=== PATIENT | female | born 1955 | race Caucasian/White ===

== ENCOUNTER 2020-12-08 16:24 | Observation (INO) ==
[2020-12-08] MEDS ORDERED: LORazepam 1 MG/2 ML VIAL IV STA (16:40)
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
[2020-12-08 17:04] LABS: Basophils # (auto) 0.01 K/uL (0-0.2); Basophils % (auto) 0.1 %; Eosinophils # (auto) 0.13 K/uL (0-0.5); Eosinophils % (auto) 1.3 %; Hematocrit (blood only) 38.2 % (37-47); Hemoglobin 13.4 g/dL (12.0-16.0); Immature Granulocytes # (auto) 0.02 K/uL (0.00-0.02); Immature Granulocytes % (auto) 0.2 %; Lymphocytes # (auto) 3.72 K/uL (1.2-3.4); Lymphocytes % (auto) 36.4 %; Mean Corpuscular Hemoglobin 33.6 pg (25-34); Mean Corpuscular Hgb Conc 35.1 g/dL (32-36); Mean Corpuscular Volume 95.7 fL (80-100); Mean Platelet Volume 8.7 fL (7.4-10.4); Monocytes # (auto) 0.63 K/uL (0.11-0.59); Monocytes % (auto) 6.2 %; Neutrophils # (auto) 5.71 K/uL (1.4-6.5); Neutrophils % (auto) 55.8 %; Platelet Count 346 K/uL (130-400); RDW Coefficient of Variation 12.5 % (11.5-14.5); RDW Standard Deviation 43.4 fL (36.4-46.3); Red Blood Count 3.99 M/uL (4.2-5.4); White Blood Count 10.22 K/uL (4.8-10.8)
[2020-12-08 17:15] LABS: Partial Thromboplastin Time 29.2 Seconds (21.0-31.0); Prothrombin Time 10.2 Seconds (9.0-12.0)
--- NOTE | 2020-12-08 17:18 | XRay Report ---
XR chest 2V PA/lateral CLINICAL HISTORY: Atypical chest pain COMPARISON STUDY: No previous studies for comparison. FINDINGS: The heart is the upper limits of normal in size. There is no failure. There is no lobar con solidation. There is a linear opacity within the left mid to lower lung zone, likely representing sub segmental atelectasis.[There is slight basilar interstitial thickening. IMPRESSION: 1. Minor basilar interstitial thickening and subsegmental atelectatic changes the left lung base. No evidence of failure. No evidence of lobar consolidation ACT 112: Negative or not required by law. Electronically signed by: Hima Samuel M.D. 12/08/2020 5:17 PM
[2020-12-08 17:21] LABS: BUN Creatinine Ratio 18.8 (10-20); Calcium 8.8 mg/dl (8.5-10.1); Creatinine Clr Calc Pharmacy 92.9 ml/min; Est GFR (African American) 110.3; Est GFR (Non-African American) 95.1; Potassium 3.5 mmol/L (3.5-5.1)
[2020-12-08 17:27] LABS: Troponin I 0.114 ng/ml (0-0.045)
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
[2020-12-08] MEDS ORDERED: ONDANSETRON INJ 2 MG/ML 2 ML VIAL IV PRN (20:44)
[2020-12-08] MEDS ORDERED: NITROGLYCERIN SL 0.4 MG/TAB TAB SL PRN (20:44)
[2020-12-08] MEDS ORDERED: POLYETHYLENE (MIRALAX) 17 GM PACK PO PRN (20:44)
[2020-12-08] MEDS ORDERED: ACETAMINOPHEN 325 MG TAB PO PRN (20:44)
[2020-12-08] MEDS ORDERED: ZALEPLON 5 MG CAPSULE PO SCH (21:00)
[2020-12-09] MEDS ORDERED: hydrOXYzine HCl 10 MG TAB PO PRN (01:38)
[2020-12-09] MEDS ORDERED: ASPIRIN 81 MG ECTAB PO SCH (09:00)
[2020-12-09] MEDS ORDERED: MAGNESIUM OXIDE 400 MG TAB PO SCH (09:00)
[2020-12-09 09:41] LABS: Basophils # (auto) 0.02 K/uL (0-0.2); Basophils % (auto) 0.3 %; Eosinophils # (auto) 0.16 K/uL (0-0.5); Eosinophils % (auto) 2.1 %; Hemoglobin 12.4 g/dL (12.0-16.0); Immature Granulocytes # (auto) 0.01 K/uL (0.00-0.02); Immature Granulocytes % (auto) 0.1 %; Lymphocytes # (auto) 2.59 K/uL (1.2-3.4); Lymphocytes % (auto) 33.2 %; Mean Corpuscular Hemoglobin 32.5 pg (25-34); Mean Corpuscular Hgb Conc 33.5 g/dL (32-36); Mean Corpuscular Volume 97.1 fL (80-100); Mean Platelet Volume 8.8 fL (7.4-10.4); Monocytes # (auto) 0.49 K/uL (0.11-0.59); Monocytes % (auto) 6.3 %; Neutrophils # (auto) 4.53 K/uL (1.4-6.5); Platelet Count 352 K/uL (130-400); RDW Coefficient of Variation 12.8 % (11.5-14.5); RDW Standard Deviation 45.2 fL (36.4-46.3); Red Blood Count 3.81 M/uL (4.2-5.4)
[2020-12-09 10:04] LABS: Creatinine Clr Calc Pharmacy 108.7 ml/min; Est GFR (African American) 116.2; Est GFR (Non-African American) 100.3; Magnesium 1.9 mg/dl (1.8-2.4)
--- NOTE | 2020-12-09 10:12 | XCELERA ---
[id number]
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
--- NOTE | 2020-12-09 12:30 | Electrocardiogram Report ---
Test Reason : Blood Pressure : / mmHG Vent. Rate : 071 BPM Atrial Rate : 071 BPM P-R Int : 168 ms QRS Dur : 078 ms QT Int : 448 ms P-R-T Axes : 071 032 086 degrees QTc Int : 486 ms Poor data quality, interpretation may be adversely affected Normal sinus rhythm Normal ECG No previous ECGs available Confirmed by Moise Bermudez ([id number]) on 12/09/2020 12:29:48 PM Referred By: REFERRED SELF Confirmed By:Moise Bermudez
--- NOTE | 2020-12-09 12:38 | Electrocardiogram Report ---
Test Reason : Blood Pressure : / mmHG Vent. Rate : 058 BPM Atrial Rate : 058 BPM P-R Int : 180 ms QRS Dur : 084 ms QT Int : 496 ms P-R-T Axes : 071 063 099 degrees QTc Int : 486 ms Sinus bradycardia Poor R wave progression, consider anterior CT vs. lead placement vs. LVH Abnormal ECG When compared with ECG of 08-DEC-2020 16:36, (unconfirmed) No significant change was found Confirmed by Moise Bermudez ([id number]) on 12/09/2020 12:37:59 PM Referred By: REFERRED SELF Confirmed By:Moise Bermudez
--- NOTE | 2020-12-09 21:28 | Billing Data ---
Date of Service December 09, 2020 Coding Level of Care Code 88431 OBS Care - Level 3
[2020-12-10 06:39] LABS: Estimated Average Glucose 117 mg/dl; Hemoglobin A1C 5.7 % (4.5-5.6)
== END 2020-12-09 09:35 | disposition left against medical advice (07) ==
LOC: 2W 16:24 → ED 16:24 → SUATTDRO 19:42 → 2W 20:17

== ENCOUNTER 2020-12-10 00:50 | Observation (INO) ==
--- NOTE | 2020-12-10 01:48 | Emergency Department Note ---
Impression & Plan Acute pain of right shoulder, Blood alcohol, elevated ED Provider Note NAME: CARMENZA LOAIZA AGE: 65 SEX: F ARRIVES VIA: Ambulance INFORMANT: Patient ED PROVIDER(S): Angelica Lynch DO CHIEF COMPLAINT: Right shoulder pain and neck pain PLAN: Disposition: Evaluated by the [facility] service Condition: Good MEDICAL DECISION MAKING: This is a 65-year-old female patient who presents to the emergency department complaining of bilateral arm pain, neck pain and back pain. The patient's symptoms started after having a stressful conversation on the phone with her daughter. The patient was seen here 2 days ago with substernal chest pain and admitted to the hospital with an elevated troponin. Unfortunately, at that time, the patient signed herself out AMA before all of the cardiology evaluation could be completed. The patient states that she was feeling okay when she left the hospital but much of her symptoms came back tonight after this phone call but most specifically a throbbing pain in her neck and right shoulder. EKG is unremarkable and troponin is negative today. I reviewed the records from her admission 2 days ago and discussed the case with the [facility] ospitalist. They will evaluate the patient to bring her back into the hospital to complete the rest of her work-up. The concern is that her shoulder discomfort and neck pain may be an anginal equivalent. Triage Nursing notes reviewed and agree them. Prior medical records reviewed Vital Signs: reviewed and unremarkable Differential diagnosis: Unstable angina, STEMI, pancreatitis, aortic dissection, anxiety, GERD Diagnostics interpreted by me: ECG: Normal sinus rhythm at a rate of [address] segment elevation or signs of ischemia. There is no ectopy. This is unchanged from an EKG from just 2 days ago. Cardiac Monitoring: Normal sinus rhythm at a rate of 73. Laboratory studies: See below HPI: 65/F arrives for evaluation of right shoulder pain and neck pain. Patient presents to the emergency department with upper back pain, neck pain and right shoulder pain. She describes these symptoms as throbbing. She states that her symptoms are exactly the same as what brought her to the emergency department 2 nights ago when she was admitted with elevated troponins. Patient admits that she had an argument on the phone with her daughter who is currently in [facility] and this was probably the triggering event. Patient states that she is still having some mild posterior neck pain and right shoulder pain. The patient was at a restaurant tonight where she had 2 glasses of wine and some whiskey. ROS: See above HPI for pertinent positives & negatives. A total of 10 systems reviewed and were otherwise negative. PAST MEDICAL HISTORY:Bipolar disorder; alcohol use; pancreatitis; cardiac cath 2 years ago which was negative according to the patient PAST SURGICAL HISTORY:See Below FAMILY HISTORY:See Below SOCIAL HISTORY:Patient lives with her in [place], [place]; she does smoke; she does drink alcohol HOME MEDICATIONS:See list ALLERGIES:Prednisone VITALS:See Below PHYSICAL EXAMINATION: General: The patient is slurring her words and smells of alcohol. HEENT: Head - normocephalic and atraumatic Pupils are equal, round, and reactive to light. Extraocular eye muscles are intact, and sclera are anicteric. Nose - moist nasal mucosa without discharge. Mouth - moist buccal mucosa. Oropharynx is nonerythematous and there is no tonsillar exudate or edema noted. Neck: Supple; no JVD or thyromegaly Heart: Regular rate and rhythm. There is a normal S1 and S2 with no murmurs, clicks, or gallops appreciated. Lungs: Clear to auscultation bilaterally with no wheezes, rales, or rhonchi. Abdomen: Soft, completely nontender, nondistended, with good bowel sounds. There are no palpable pulsatile masses or hepatosplenomegaly. There is no guarding, rigidity, or rebound noted. Extremities: No evidence of cyanosis, clubbing, or edema. There are easily palpable peripheral pulses. Skin: warm and dry with good turgor and no rashes. ED COURSE:0105: Patient was evaluated in room A2. A complete history and physical was performed. Electronic medical records from 2 days ago were reviewed including the inpatient records. The patient did sign out AMA at that time. An order was placed for continuous cardiac monitoring. The patient is in a normal sinus rhythm at a rate of 73. Laboratory studies were drawn as above. A twelve-lead EKG was obtained. Upon initial questioning, the patient denied that she ever had a cardiac cath but did state that she underwent cardiac stress testing sometime ago at [facility]. After further questioning, the patient does believe that she had a cardiac cath which was -2 garcia ago. The patient was admitted to [facility] last summer for pancreatitis. She states that she had some sort of cardiac work-up at that time which was negative. The patient is visiting the area from the [place] area. She does have a elderly sitter back in the [place] area but would prefer to have any further cardiac work-up done at this time here. [facility] her 2 days ago during her first visit. They will evaluate her for further care. Angelica Lynch DO Past Med/Surg History Medical History Bipolar 1 disorder No pertinent family history Surgical History No pertinent past surgical history Family History Mother Heart disease, Onset Age: 60 Father Heart disease, Onset Age: 70 Social History Smoking Status: Current every day smoker Tobacco Type: Cigarettes Cigarettes Per Day: 6; Hx Alcohol Use: Yes Alcohol type: beer, wine and hard liquor Hx Substance Use: No Preferred Language: Iranian Communication Ability: Effective Accountant Certified Public Required: No Beliefs That Will Affect Care: None Current Living Situation: Spouse Feels Safe at Home: Yes Assistive Devices: None Allergies Allergies Allergy/AdvReac Type Severity Reaction Status Date / Time prednisone AdvReac Severe Triggers Unverified 12/10/20 01:43 Marva Home Meds Home Medications Medication Instructions Recorded Confirmed zaleplon 10 mg PO HS PRN 12/08/20 12/10/20 buspirone 15 mg PO BID 12/10/20 12/10/20 cariprazine [Vraylar] 3 mg PO DAILY 12/10/20 12/10/20 lamotrigine 300 mg PO DAILY 12/10/20 12/10/20 Results & Data (ED) Vital Signs Vital Signs - 24 hr 12/10/20 01:00 12/10/20 01:30 12/10/20 02:00 Temperature 36.5 C Temperature Source Oral Pulse Rate 68 70 67 Pulse Rate from SpO2 Sensor 69 70 66 Pulse Rhythm Regular Pulse Strength Normal Respiratory Rate 17 24 18 Respiratory Effort / Characteristics Non-Labored Respiratory Depth Normal Respiratory Pattern Regular Blood Pressure 118/56 L 125/62 125/59 L Blood Pressure Mean 76 83 81 Blood Pressure Position Lying Pulse Oximetry 95 94 98 Oxygen Delivery Method Room Air Room Air Sepsis Recent Fever Within 48 Hours No Sepsis New/Unexplained Change in Mental Status N/A Sepsis Action Taken by Nursing No Action Required 12/10/20 02:30 12/10/20 03:00 12/10/20 03:30 Temperature Temperature Source Pulse Rate 75 71 69 Pulse Rate from SpO2 Sensor 75 71 69 Pulse Rhythm Pulse Strength Respiratory Rate 13 16 17 Respiratory Effort / Characteristics Respiratory Depth Respiratory Pattern Blood Pressure 137/61 116/58 L 145/57 H Blood Pressure Mean 86 77 86 Blood Pressure Position Pulse Oximetry 94 94 94 Oxygen Delivery Method Room Air Sepsis Recent Fever Within 48 Hours Sepsis New/Unexplained Change in Mental Status Sepsis Action Taken by Nursing 12/10/20 04:01 Temperature Temperature Source Pulse Rate 73 Pulse Rate from SpO2 Sensor 71 Pulse Rhythm Pulse Strength Respiratory Rate 17 Respiratory Effort / Characteristics Respiratory Depth Respiratory Pattern Blood Pressure 144/47 H Blood Pressure Mean 79 Blood Pressure Position Pulse Oximetry 97 Oxygen Delivery Method Sepsis Recent Fever Within 48 Hours Sepsis New/Unexplained Change in Mental Status Sepsis Action Taken by Nursing Laboratory Data Result diagrams: 12/10/20 01:50 12/10/20 01:50 Lab Results 12/10/20 12/10/20 12/10/20 Range/Units 01:50 01:50 01:50 WBC 8.29 (4.8-10.8) K/uL RBC 4.19 L (4.2-5.4) M/uL Hgb 13.8 (12.0-16.0) g/dL Hct 41.1 (37-47) % MCV 98.1 (80-100) fL MCH 32.9 (25-34) pg MCHC 33.6 (32-36) g/dL RDW Std Deviation 45.2 (36.4-46.3) fL RDW Coeff of Trav 12.7 (11.5-14.5) % Plt Count 304 (130-400) K/uL MPV 8.4 (7.4-10.4) fL Immature Gran % (Auto) 0.1 % Neut % (Auto) 44.0 % Lymph % (Auto) 47.6 % Jefferson % (Auto) 5.5 % Eos % (Auto) 2.7 % Baso % (Auto) 0.1 % Neut # (Auto) 3.64 (1.4-6.5) K/uL Lymph # (Auto) 3.95 H (1.2-3.4) K/uL Jefferson # (Auto) 0.46 (0.11-0.59) K/uL Eos # (Auto) 0.22 (0-0.5) K/uL Baso # (Auto) 0.01 (0-0.2) K/uL Immature Gran # (Auto) 0.01 (0.00-0.02) K/uL PT 9.9 (9.0-12.0) Seconds INR 0.9 (0.9-1.1) APTT 28.5 (21.0-31.0) Seconds PTT Ratio 1.0 Sodium 145 (136-145) mmol/L Potassium 3.7 (3.5-5.1) mmol/L Chloride 109 H (98-107) mmol/L Carbon Dioxide 29 (21-32) mmol/L Anion Gap 7.0 (3-11) BUN 11 (7-18) mg/dl Creatinine 0.58 L (0.6-1.2) mg/dl Est Cr Clr Drug Dosing 97.9 ml/min Est GFR ( Amer) 112.1 Est GFR (Non-Af Amer) 96.7 BUN/Creatinine Ratio 19.2 (10-20) Glucose 92 (70-99) mg/dl Calcium 8.9 (8.5-10.1) mg/dl Magnesium 2.1 (1.8-2.4) mg/dl Total Bilirubin 0.1 L (0.2-1) mg/dl AST 9 L (15-37) U/L ALT 32 (12-78) U/L Alkaline Phosphatase 130 H (45-117) U/L Troponin I < 0.015 (0-0.045) ng/ml Total Protein 7.3 (6.4-8.2) gm/dl Albumin 3.6 (3.4-5.0) gm/dl Globulin 3.7 (2.5-4.0) gm/dl Albumin/Globulin Ratio 1.0 (0.9-2) Lipase 92 (73-393) U/L Ethyl Alcohol mg/dL (0-3) mg/dl 12/10/20 Range/Units 01:50 WBC (4.8-10.8) K/uL RBC (4.2-5.4) M/uL Hgb (12.0-16.0) g/dL Hct (37-47) % MCV (80-100) fL MCH (25-34) pg MCHC (32-36) g/dL RDW Std Deviation (36.4-46.3) fL RDW Coeff of Trav (11.5-14.5) % Plt Count (130-400) K/uL MPV (7.4-10.4) fL Immature Gran % (Auto) % Neut % (Auto) % Lymph % (Auto) % Jefferson % (Auto) % Eos % (Auto) % Baso % (Auto) % Neut # (Auto) (1.4-6.5) K/uL Lymph # (Auto) (1.2-3.4) K/uL Jefferson # (Auto) (0.11-0.59) K/uL Eos # (Auto) (0-0.5) K/uL Baso # (Auto) (0-0.2) K/uL Immature Gran # (Auto) (0.00-0.02) K/uL PT (9.0-12.0) Seconds INR (0.9-1.1) APTT (21.0-31.0) Seconds PTT Ratio Sodium (136-145) mmol/L Potassium (3.5-5.1) mmol/L Chloride (98-107) mmol/L Carbon Dioxide (21-32) mmol/L Anion Gap (3-11) BUN (7-18) mg/dl Creatinine (0.6-1.2) mg/dl Est Cr Clr Drug Dosing ml/min Est GFR ( Amer) Est GFR (Non-Af Amer) BUN/Creatinine Ratio (10-20) Glucose (70-99) mg/dl Calcium (8.5-10.1) mg/dl Magnesium (1.8-2.4) mg/dl Total Bilirubin (0.2-1) mg/dl AST (15-37) U/L ALT (12-78) U/L Alkaline Phosphatase (45-117) U/L Troponin I (0-0.045) ng/ml Total Protein (6.4-8.2) gm/dl Albumin (3.4-5.0) gm/dl Globulin (2.5-4.0) gm/dl Albumin/Globulin Ratio (0.9-2) Lipase (73-393) U/L Ethyl Alcohol mg/dL 61.0 H (0-3) mg/dl Discharge Plan Visit Data Chief Complaint: Anxiety Stated Complaint: NECK, LOW BACK, BILAT ARM PAIN ED Provider: Angelica Lynch Discharge Problem: Acute pain of right shoulder, Blood alcohol, elevated Patient Disposition: Admitted As Inpatient Forms Stand Alone Forms: [facility], Suicide Prevention Resources Prescriptions Prescriptions: No Action zaleplon 10 mg Capsule 10 mg PO HS PRN (Reason: Unknown) RF: 0 lamotrigine 150 mg tablet 300 mg PO DAILY RF: 0 Vraylar 3 mg capsule 3 mg PO DAILY RF: 0 buspirone 15 mg tablet 15 mg PO BID RF: 0 Referrals Referrals: PCP,NO [Primary Care Provider] - Discharge Problem: Blood alcohol, elevated Qualifiers: Blood alcohol level: 60-79 mg/100 ml Qualified Code(s): Y90.3 - Blood alcohol level of 60-79 mg/100 ml
[2020-12-10 02:06] LABS: Basophils # (auto) 0.01 K/uL (0-0.2); Basophils % (auto) 0.1 %; Eosinophils # (auto) 0.22 K/uL (0-0.5); Eosinophils % (auto) 2.7 %; Hematocrit (blood only) 41.1 % (37-47); Hemoglobin 13.8 g/dL (12.0-16.0); Immature Granulocytes # (auto) 0.01 K/uL (0.00-0.02); Immature Granulocytes % (auto) 0.1 %; Lymphocytes # (auto) 3.95 K/uL (1.2-3.4); Lymphocytes % (auto) 47.6 %; Mean Corpuscular Hemoglobin 32.9 pg (25-34); Mean Corpuscular Hgb Conc 33.6 g/dL (32-36); Mean Corpuscular Volume 98.1 fL (80-100); Mean Platelet Volume 8.4 fL (7.4-10.4); Monocytes # (auto) 0.46 K/uL (0.11-0.59); Monocytes % (auto) 5.5 %; Neutrophils # (auto) 3.64 K/uL (1.4-6.5); Platelet Count 304 K/uL (130-400); RDW Coefficient of Variation 12.7 % (11.5-14.5); RDW Standard Deviation 45.2 fL (36.4-46.3); Red Blood Count 4.19 M/uL (4.2-5.4); White Blood Count 8.29 K/uL (4.8-10.8)
[2020-12-10 02:19] LABS: INR 0.9 (0.9-1.1); Partial Thromboplastin Time 28.5 Seconds (21.0-31.0); Prothrombin Time 9.9 Seconds (9.0-12.0)
[2020-12-10 02:31] LABS: Alanine Aminotransferase 32 U/L (12-78); Albumin Level 3.6 gm/dl (3.4-5.0); Alkaline Phosphatase 130 U/L (45-117); Aspartate Aminotransferase 9 U/L (15-37); BUN Creatinine Ratio 19.2 (10-20); Bilirubin,Total 0.1 mg/dl (0.2-1); Blood Urea Nitrogen 11 mg/dl (7-18); Calcium 8.9 mg/dl (8.5-10.1); Carbon Dioxide 29 mmol/L (21-32); Chloride 109 mmol/L (98-107); Creatinine Clr Calc Pharmacy 97.9 ml/min; Est GFR (African American) 112.1; Est GFR (Non-African American) 96.7; Globulin 3.7 gm/dl (2.5-4.0); Glucose 92 mg/dl (70-99); Lipase 92 U/L (73-393); Magnesium 2.1 mg/dl (1.8-2.4); Potassium 3.7 mmol/L (3.5-5.1); Sodium 145 mmol/L (136-145); Total Protein 7.3 gm/dl (6.4-8.2); Troponin I < 0.015 ng/ml (0-0.045)
--- NOTE | 2020-12-10 03:15 | History & Physical Report ---
Date of Service December 10, 2020 Assessment & Plan (1) Left arm pain: 65 yo F Hx bipolar 1 disorder, smoking presented with arm discomfort and admitted for chest pain rule out given questionable anginal equivalent of arm pain with stressors and recent admission with elevated troponin. Left arm pain, ? anginal equivalent: - Patient on arrival with left arm throbbing/discomfort that rapidly resolved following arrival. - EKG without ST/T wave changes suggestive of STEMI. Some T wave inversions noted. - Admitted two days ago for similar symptoms, however left AMA before evaluation was completed. - 12/08 had initial troponin elevated to 0.114, with troponin today undetectable. - CXR without acute findings suggestive of infection. - TTE performed 12/09 showed no evidence of wall motion abnormality with normal LVEF. - NPO at midnight for stress test AM. - Will defer heparin gtt at this time, patient comfortable and without chest/arm pain. - Serial troponins q8h. - A1c and lipid panel for AM labs. - Patient's symptoms in the setting of extreme social and emotional stress (similar to previous admission), with significant family history of CAD. Admit observation for serial troponins and stress test in AM given repeat of ? anginal symptoms today under similar circumstances. - Encouraged smoking cessation. Bipolar 1 disorder: - Continue home Lamictal, Vraylar, buspirone, zaleplon prn sleep. - Home Sonata ok as needed for sleep. - Patient does endorse being on hydroxyzine 10mg nightly at home. Can continue as needed. Elevated alcohol level: - Noted on admission to have elevated alcohol level to 61mg/dL, with some slurring of words on interview. - CAGE questioning negative. Reports having some alcoholic beverages this evening with a friend before coming to ER. - No concern for withdrawal at this time. Code Status: FULL CODE FEN/GI: NPO at midnight for stress test AM DVT ppx: Heparin 5000u SQ q12h Dispo: Med/Surg with Telemetry for continuous cardiac monitoring, serial troponins (2) Bipolar 1 disorder: (3) Abnormal EKG: (4) Elevated ETOH level: History of Present Illness Chief Complaint: left arm/neck pain Primary Care Provider: NO PCP 65-year-old female with a history of bipolar 1 disorder, smoking abuse presents for a repeat occurrence of left neck/arm pain, described as throbbing in nature, without associated diaphoresis, shortness of breath, lightheadedness, abdominal pain. This pain is similar to her pain described on admission 12/08 after having had a significant verbal argument with a family member, with the pain immediately following. Of note, patient left AMA on 12/09 before being seen by physician and without having morning lab work. TTE was able to be performed however which did show normal LVEF and no notable wall motion abnormalities. She does have a significant family history of CAD, in both her mother and her father in their 60s to 70s. Patient is a current everyday smoker of cigarettes. At the time of my interview the patient denies any chest/arm pain, shortness of breath, arm pain, nausea or vomiting, abdominal pain. Has not recently been ill with any URI symptoms, no COVID positive contacts. No recent bedbound status, no known cancers, no long car or plane rides. Allergies Allergy/AdvReac Type Severity Reaction Status Date / Time prednisone AdvReac Severe Triggers Unverified 12/10/20 01:43 Marva Home Medications Medication Instructions Recorded Confirmed Type zaleplon 10 mg PO HS PRN 12/08/20 12/10/20 History Vraylar 3 mg PO DAILY 12/10/20 12/10/20 History aspirin 81 mg PO QAM 30 Days #30 tab 12/10/20 Rx buspirone 15 mg PO BID 12/10/20 12/10/20 History lamotrigine 300 mg PO DAILY 12/10/20 12/10/20 History Past Med/Surg History Medical History Bipolar 1 disorder No pertinent family history Surgical History No pertinent past surgical history Family History Mother Heart disease, Onset Age: 60 Father Heart disease, Onset Age: 70 Social History Smoking Status: Current every day smoker Tobacco Type: Cigarettes Cigarettes Per Day: 6; Hx Alcohol Use: Yes Alcohol type: beer, wine and hard liquor Hx Substance Use: No Preferred Language: Syriac Communication Ability: Effective Ethnoarchaeology Professor Required: No Beliefs That Will Affect Care: None Current Living Situation: Spouse Feels Safe at Home: Yes Assistive Devices: None Review of Systems Review of Systems: All systems reviewed & are unremarkable except as noted in HPI & below no fever, no chills and no malaise no cough and no dyspnea no chest pain, no palpitations and no edema no abdominal pain, no constipation and no diarrhea/loose stools no dysuria and no hematuria Physical Exam Constitutional: WD/WN, vitals as above Eyes: PERRL, conjunctivae normal, anicteric sclerae ENMT: external ear and nose normal, oropharynx normal Neck: normal visual inspection Respiratory: normal respiratory effort, lungs clear to auscultation Cardiovascular: RRR, no murmur, no edema Normal peripheral pulses bilateral upper and lower extremities Gastrointestinal (Abdomen): normal bowel sounds, soft, nontender, no hepatosplenomegaly Musculoskeletal: No cyanosis or clubbing noted, unable to reproduce tenderness over neck or left shoulder with palpation Skin: no rashes, warm and dry Neurologic: AAOx3, somewhat slurred speech, with some drift off and falling asleep during interview. No focal neurologic deficits noted, sensory or motor in nature. No tremor. No facial droop. Psychiatric: A+Ox3, euthymic affect Results & Data Results & Data ([facility]) Vital Signs (Past 12 Hours) Vital Signs Temp Pulse Resp BP Pulse Ox 12/10/20 03:00 71 16 116/58 L 94 12/10/20 02:30 75 13 137/61 94 12/10/20 02:00 67 18 125/59 L 98 12/10/20 01:30 70 24 125/62 94 12/10/20 01:00 36.5 C 68 17 118/56 L 95 Supervising Physician Co-Signing Physician Notes Attending addendum: I have physically seen this patient, have supervised the medical residents activities, and agree with the H&P unless as otherwise noted. Assessment and Plan: Left arm pain/recent elevated troponin of 0.114- The patient will be admitted to telemetry for serial cardiac enzymes, serial EKG's, cardiac rhythm monitoring Left AMA at recent admission TTE performed on 12/09 was normal Check a hemoglobin A1c and fasting lipid panel Consult cardiology Bipolar type I disorder- Continue Lamictal, Vraylar, buspirone, hydroxyzine and zalepelon Remaining orders and notations as noted Resident Activity Tracking Resident Involvement: Resident Care Provided Care Provided: Adult Hospital Medicine (1) Elevated ETOH level Blood alcohol level: level not specified Qualified Code(s): R78.0 - Finding of alcohol in blood
[2020-12-10] MEDS ORDERED: ZALEPLON 5 MG CAPSULE PO PRN (05:06)
[2020-12-10] MEDS ORDERED: ACETAMINOPHEN 325 MG TAB PO PRN (05:06)
[2020-12-10] MEDS ORDERED: POLYETHYLENE (MIRALAX) 17 GM PACK PO PRN (05:06)
[2020-12-10] MEDS ORDERED: NITROGLYCERIN SL 0.4 MG/TAB TAB SL PRN (05:06)
[2020-12-10] MEDS ORDERED: hydrOXYzine HCl 10 MG TAB PO PRN (05:06)
[2020-12-10] MEDS ORDERED: lamoTRIgine 100 MG TAB PO SCH (09:00)
[2020-12-10] MEDS ORDERED: ASPIRIN 81 MG ECTAB PO SCH (09:00)
[2020-12-10] MEDS ORDERED: HEPARIN SOD 5,000 UNIT/0.5 ML VIAL SQ SCH (09:00)
[2020-12-10] MEDS ORDERED: busPIRone 15 MG TAB PO SCH (09:00)
--- NOTE | 2020-12-10 09:25 | XCELERA ---
[id number] \\[id number]
--- NOTE | 2020-12-10 13:24 | Electrocardiogram Report ---
Test Reason : Blood Pressure : / mmHG Vent. Rate : 073 BPM Atrial Rate : 073 BPM P-R Int : 172 ms QRS Dur : 078 ms QT Int : 428 ms P-R-T Axes : 066 024 094 degrees QTc Int : 471 ms Normal sinus rhythm Nonspecific T wave abnormality Abnormal ECG When compared with ECG of 09-DEC-2020 08:17, No significant change Confirmed by Moise Bermudez ([id number]) on 12/10/2020 1:24:14 PM Referred By: REFERRED SELF Confirmed By:Moise Bermudez
--- NOTE | 2020-12-10 14:00 | Discharge Summary ---
Date of Service December 10, 2020 Admission HPI Per Admitting Provider 65-year-old female with a history of bipolar 1 disorder, smoking abuse presents for a repeat occurrence of left neck/arm pain, described as throbbing in nature, without associated diaphoresis, shortness of breath, lightheadedness, abdominal pain. This pain is similar to her pain described on admission 12/08 after having had a significant verbal argument with a family member, with the pain immediately following. Of note, patient left AMA on 12/09 before being seen by physician and without having morning lab work. TTE was able to be performed however which did show normal LVEF and no notable wall motion abnormalities. She does have a significant family history of CAD, in both her mother and her father in their 60s to 70s. Patient is a current everyday smoker of cigarettes. At the time of my interview the patient denies any chest/arm pain, shortness of breath, arm pain, nausea or vomiting, abdominal pain. Has not recently been ill with any URI symptoms, no COVID positive contacts. No recent bedbound status, no known cancers, no long car or plane rides. Principal Diagnosis Left arm pain Anxiety Bipolar disorder Discharge Exam Constitutional WD/WN, vitals as above Neck trachea midline, no thyromegaly Respiratory normal respiratory effort, lungs clear to auscultation Cardiovascular RRR, no murmur, no edema Gastrointestinal (Abdomen) normal bowel sounds, soft, nontender, no hepatosplenomegaly Musculoskeletal no cyanosis or clubbing, extremities motor strength 5/5 Skin no rashes, warm and dry Neurologic patellar DTR's 2+ bilat, sensation intact and PERRL, EOMI, accommodation nl, no face palsy, no dysarthria Psychiatric Orientation: alert and oriented x 3 Affect: + anxious affect Lymphatic no cervical or axillary lymphadenopathy Discharge Data Allergies Allergy/AdvReac Type Severity Reaction Status Date / Time prednisone AdvReac Severe Triggers Unverified 12/10/20 01:43 Marva Consultations 12/10/20 03:10 ED Decision to Admit Stat Hospital Course (1) Left arm pain: 65 yo F Hx bipolar 1 disorder, smoking presented with arm discomfort and admitted for chest pain rule out given questionable anginal equivalent of arm pain with stressors and recent admission with elevated troponin. Left arm pain, ? anginal equivalent: - Patient on arrival with left arm throbbing/discomfort that rapidly resolved following arrival. - EKG without ST/T wave changes suggestive of STEMI. Some T wave inversions noted. - Admitted two days ago for similar symptoms, however left AMA before evaluation was completed. - 12/08 had initial troponin elevated to 0.114 - CXR without acute findings suggestive of infection. - TTE performed 12/09 showed no evidence of wall motion abnormality with normal LVEF. troponin negative x 2 sets, no further arm or chest pain exercise stress echocardiogram today with no symptoms at 74% max predicted HR, so it was suboptimal patient says she had a normal left heart catheterization two years ago back home in [facility] [place] will discharge to home instructed her to get rest, stay well nourished and well hydrated avoid alcohol for a few days return home soon Bipolar 1 disorder: - Continue home Lamictal, Vraylar, buspirone, zaleplon prn sleep. - Home Sonata ok as needed for sleep. - Patient says she is in [place] and [place] because she needed to be away from her and daughter she has been under a lot of stress I asked her about safe transportation back to [place], she said she had [employer] account I asked her about food, she says she has a lot of food she says she feels safe and comfortable being alone, has local friends she plans on visiting Elevated alcohol level: - Noted on admission to have elevated alcohol level to 61mg/dL, with some slurring of words on interview. - CAGE questioning negative. Reports having some alcoholic beverages before coming to ER. - No concern for withdrawal at this time. Code Status: FULL CODE FEN/GI: NPO at midnight for stress test AM DVT ppx: Heparin 5000u SQ q12h Dispo: Med/Surg with Telemetry for continuous cardiac monitoring, serial troponins (2) Bipolar 1 disorder: (3) Abnormal EKG: (4) Elevated ETOH level: Total Time Total Time Spent Total Time Spent (In Minutes): 20 Total Time Includes: Examination of the Patient, Discharge Planning and Medication Reconciliation Discharge Plan Discharge Items Patient Disposition: Home - Self-Care Reason For Visit: CHEST / LEFT ARM PAIN Discharge Diagnosis: Chest pain Negative stress echocardiogram Condition on Discharge: Good Goals: stay well rested, well nourished, well hydrated Activity: Resume your previous activity Non-emergency contact: Primary Care Provider Call non-emergency contact if: you have any medication questions and your symptoms worsen Follow-up/Referrals: PCP,NO [Primary Care Provider] - Diet: Regular Addtl Attending Provider Instructions: Medications: no major changes recommend taking aspirin 81mg daily for heart protection left arm pain, possible angina equivalent troponin NEGATIVE x 2 sets, no changes on EKG stress echocardiogram negative for signs of ischemia symptoms could be due to stress, alcohol use recommend getting rest, staying away from alcohol for a few days, stay well hydrated and well nourished follow up with your physicians back home at [facility] Pending Studies at Discharge: No Stand-Alone Forms: My [facility] [employer], Smoking Cessation Medications and DC Order Prescriptions: New aspirin 81 mg Tablet,Delayed Release (Dr/Ec) 81 mg PO QAM 30 Days Qty: 30 RF: 0 Continued zaleplon 10 mg Capsule 10 mg PO HS PRN (Reason: Unknown) RF: 0 lamotrigine 150 mg tablet 300 mg PO DAILY RF: 0 Vraylar 3 mg capsule 3 mg PO DAILY RF: 0 buspirone 15 mg tablet 15 mg PO BID RF: 0 Discharge Orders: Discharge Order (Routine); Ordered 12/10/20 Ordered By: Reynaldo Soliman Admission Data Admit Date/Time: 12/10/20 03:14 Attending Provider: Reynaldo Soliman Admit Provider: Cecelia Butler Primary Care Provider: PCP,NO Other Providers: Arturo Godinez Other Interventions: Discharge Summary Assessment (RN) Last Done: 12/10/20 14:08 Coding Level of Care Code 20724 OBS Care - Discharge Diagnoses Left arm pain M79.602 Bipolar 1 disorder F31.9 Abnormal EKG R94.31 Elevated ETOH level R78.0 Blood alcohol level: level not specified
--- NOTE | 2020-12-10 22:29 | Billing Data ---
Date of Service December 10, 2020 Coding Level of Care Code 32089 OBS Care - Level 3
== END 2020-12-10 14:42 | disposition home or self-care (01) ==
LOC: ED 00:50 → 2N 00:50 → SUATTDRO 03:14 → 2N 04:33